=== PATIENT | female | born 1995 | race Caucasian/White ===

== ENCOUNTER 2016-10-17 12:44 | Emergency (ER) | payer OTHER ==
[~2016-10-17] VITALS: Ht 162.6 cm; Wt 65.9 kg
[2016-10-17 12:47] VITALS: BP 125/74; PULSE 99; RESP 14; O2SAT 100
--- NOTE | 2016-10-17 13:00 | ED.REPORT ---
HPI-Extremity Problem Lower Date of Service Oct 17, 2016 ED Provider: History of Present Illness: left hip pain since yesterday. [place] [facility] [place]cesses were not visible from the skin per patient report. 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 primary care is [facility]. night sweats the last 3 nights. 8/10 pain. Also complains of burning with urination for 4 days. when asked if patient is interested in treatment, states she is in treatment at [facility]. Nursing Notes Stated Complaint: LEFT HIP PAIN/BLADDER INFECTION/FEVER Chief Complaint: Extremity Trauma Nursing Notes Reviewed: Yes Allergies: Coded Allergies: Penicillins (Verified Allergy, Severe, anaphylaxis, 10/17/16) General Time Seen by MD: 12:59 Chief Complaint Hip injury left, Other (left hip pain) Hx Obtained From: Patient Symptom Duration: Since onset Location: : Hip left Severity: Current: Pain level 8 out of 10 Risk-Extremity Prob Lower Risk Notes: active drug use 10/17/2016 Past Medical History Past Medical History Denies: Asthma, Diabetes mellitus Past Surgical History abscess opened 06/2016 Smoking History Current Every Day Smoker (1 a week for 1 years) Social History Alcohol Use: Denies alcohol use Drug Use: IV drugs, Meth, Other (heroin) Occupation lives with boyfriend no work or school 10/17/2016 Ambulatory Status Independent Review of Systems Basic Review of Systems Eyes: Vision NL, No discharge : No dysuria, No frequency Psychiatric: Normal thought content Physical Exam Initial Vital Signs Vital Signs (First) Date Time Temp Pulse Resp B/P Pulse Ox O2 Delivery O2 Flow Rate FiO2 10/17/16 12:47 37.1 99 14 125/74 100 Room Air Initial VS: Reviewed, Vital signs normal General/Constitutional: Well-developed, Well-nourished Head / Eyes: Atraumatic, Normocephalic, PERRL ENT: Mucous membranes moist, Conjunctiva normal, No scleral icterus Neck: Supple, Non-tender, Full range of motion Abdomen / GI: Soft, Non-tender, No guarding, No rebound, No distention Back: No CVA tenderness Lymphatic: No lymphadenopathy Upper Extremities: Vascular intact, Neuro intact, No swelling, No tenderness Neurologic: Alert, Oriented, Nonfocal Psychiatric: Mood/affect normal, Behavior normal, Normal thought content Lower Extremity / Pelvis / MS: Atraumatic, Inspection NL, Full range of motion , No swelling Left Hip: Positive: Tenderness present... (Moderate) no erthyma noted on left hip. visible well healed surgery scar Ankle / Foot: Atraumatic, Inspection NL, Full range of motion, No swelling General/Constitutional: Awake, Alert, No acute distress, Well appearing, Well developed, Well hydrated, Well nourished, Cooperative, Not toxic appearing Respiratory / Chest: Atraumatic, Breath sounds NL, Breath sounds = bilat, No respiratory distress Cardiovascular: Regular rhythm, Heart sounds NL, No murmurs Heart Rate / Rhythm: Positive: Tachycardia 2+ DP PT pulses bilaterally. Skin: Atraumatic, Color NL, No rash Back: Full range of motion, No midline vertebral tend Additional Notes: No midline spinal tenderness. Left lumbar paraspinous tenderness, without overlying erythema, ecchymosis, or swelling. Interpretation & Diagnostics Lab Results Interpretation Result Diagram: 10/17/16 1350 10/17/16 1350 Test 10/17/16 13:06 10/17/16 13:50 Urine Color Yellow (YELLOW) Urine Appearance Clear (CLEAR,HAZY) Urine pH 6.0 (5.0-8.0) Urine Specific [place] 1.010 (1.003-1.035) Urine Protein Negativemg/dL (NEG,TRACE) Urine Glucose (UA) Negativemg/dL (NEGATIVE) Urine Ketones Negativemg/dL (NEGATIVE) Urine Occult Blood Negative (NEGATIVE) Urine Nitrite Positive (NEGATIVE) Urine Bilirubin Negative (NEGATIVE) Urine Urobilinogen Normalmg/dL (NORMAL) Urine Leukocyte Esterase Small (NEGATIVE) Urine RBC 0-2/hpf (0-2) Urine WBC 6-10/hpf (0-5) Urine Epithelial Cells Many/hpf (NONE-MOD) Urine Crystals None seen (NONE SEEN) Urine Bacteria Many/hpf (NONE-FEW) Urine Hyaline Casts None/lpf (NONE) Urine Granular Casts None seen (NONE SEEN) Urine Waxy Casts None seen (NONE SEEN) Urine Red Blood Cell Casts None seen (NONE SEEN) Urine White Blood Cell Casts None seen (NONE SEEN) Urine Mucus None seen (None Seen) Urine Trichomonas None seen (NONE SEEN) Urine Yeast None (NONE SEEN) Urinalysis Comment None Urine Culture Reflexed Indicated Hold Urine Received (Received) White Blood Count 15.4th/mm3 (3.8-10.1) Red Blood Count 4.16mil/mm3 (3.90-5.20) Hemoglobin 11.7g/dL (12.0-15.6) Hematocrit 35.6% (35.0-46.0) Mean Corpuscular Volume 85.6fL (81-100) Mean Corpuscular Hemoglobin 28.1pg (27.0-35.0) Mean Corpuscular Hemoglobin Concent 32.9% (32.0-37.0) Red Cell Distribution Width 12.6% (12.3-15.4) Platelet Count 489bil/L (150-400) Neutrophils (%) (Auto) 76.7% (40-74) Lymphocytes (%) (Auto) 10.3% (14-46) Monocytes (%) (Auto) 12.2% (4-12) Eosinophils (%) (Auto) 0.1% (0-5) Basophils (%) (Auto) 0.5% (0-3) Erythrocyte Sedimentation Rate 68mm/hr (0-32) Sodium Level 138mEq/L (134-144) Potassium Level 4.8mEq/L (3.5-5.2) Chloride Level 100mEq/L (97-108) Carbon Dioxide Level 21mmol/L (18-29) Blood Urea Nitrogen 11mg/dL (6-20) Creatinine 0.44mg/dL (0.57-1.00) Estimat Glomerular Filtration Rate 261mL/min (>59) Glucose Level 126mg/dL (60-99) Lactic Acid Level 1.0mmol/L (0.4-2.0) Calcium Level 9.2mg/dL (8.5-10.1) Total Bilirubin 0.4mg/dL (0.0-1.2) Aspartate Amino Transf (AST/SGOT) 15U/L (0-50) Alanine Aminotransferase (ALT/SGPT) 21U/L (0-32) Alkaline Phosphatase 106U/L (25-150) C-Reactive Protein 19.9mg/dL (0.0-0.5) Total Protein 7.3g/dL (6.4-8.4) Albumin 3.9g/dL (3.4-5.0) Lab Results Interpretation: urine positive for nitrates Re-Eval/Medical Decision Med Decision/Clinical Course 21 year old female with ongoing IV drug use. [place] of [place] [facility] [place] Presents today with painful urination and left hip pain and low back pain. White count is elevated at 15. Both sed and CRP are elevated. Patient initially treated with rocephin for bladder infection, then vanco started. Patient was upset at being told she was being transfered [place] [facility] [place] Patient did not want to go there. No sign of compartment syndrome. Re-Evaluation/Progress : Time of Eval: 19:12 Re-Evaluation/Progress Note: I, Dr. Breen, assumed care of the patient from JAMES Goncalves at 18:30. Patient is resting comfortably. Explained the severity of patient's condition. Re-examined patient. She reports constipation due to oxycontin use, but denies changes in bowel/bladder habits otherwise. Discussed plan to discharge with urgent return precautions and need for immediate follow-up. Patient understands and agrees to the plan. All other questions addressed. Consultation : Consulted With: Orthopedic Requested Call at: 16:45 Call Returned at: 17:00 Note: Discussed with Dr. Mccray concern for possible abscess site noted on CT. Dr. Mccray suggestion is to send [place] [facility] [place] best at pelvic [place]. Also discussed with Dr. Puente of [place]. He also recommends follow up [place] [facility] [place] [facility] [place] Discussed with Emma in the transfer center, at [phone], the need to talk with ortho. [phone] Dr. Jose Johnson returns phone call. States he is looking at the images as we speak. Per his evualation the changes that are seen are chronic. REported to him, labs, vitals and that she has a bladder infection. As she has been following with the [facility] team. last visit was 3 weeks ago; he recommends discharge home on levaquin 750 daily for 14 days with follow up in less than 14 days . States they would not do surgery as these are chronic changes. Discussed with patient, patient is agreeable with plan and does agree to follow up. Patient given return to ER instructions Counseled Regarding: Diagnosis, Lab results, Need for follow-up, When/why to return to ED Discharge & Departure Impression: Primary Impression: Urinary tract infection Encounter type: initial encounter Additional Impressions: Osteomyelitis Piriformis muscle pain Infection Disposition: Home Discharge Condition All VS Reviewed: Yes Condition: Stable Patient Instructions: Osteomyelitis (DC), Urinary Tract Infection in Women (ED) Additional Instructions: You clearly have a bladder infection. You have received a dose of rocephin and vancomycin in the ER. The CT that was done here was sent to [facility]. Dr. Jose Johnson from [facility], has reviewed the images. He feels the changes that we are seeing today, are changes that have been present previously. Your vitals are stable. As he feels these are chronic changes, his recommendation is to start Levaquin 750 mg daily for 14 days. He would like you to follow up in less than 2 weeks time with the [facility]. As your last follow up was about 3 weeks ago, please call them and arrange a follow up appointment. If you should develop fever greater than 101.5, vomiting, inability to keep the medication down, return to the ER immediately. EDSupervising Provider for APC: Anne Breen MD Scribe Attestation Portions of this note were transcribed by John Price. I, Dr. Breen, personally performed the history, physical exam and medical decision-making; I reviewed and confirmed the accuracy of the information in the transcribed note. Signed by: Melissa Parsons. 10/17/2016 - 19:20 Savi Dominique Oct 17, 2016 13:00 JOHN PRICE Oct 17, 2016 19:18
[2016-10-17] MEDS ORDERED: 0.9% Sodium Chloride 1,000 ML IV ONE (13:15)
[2016-10-17 13:55] LABS: APPEARANCE,URINE CLEAR (CLEAR,HAZY); COLOR,URINE YELLOW (YELLOW); OCCULT BLOOD,URINE NEGATIVE (NEGATIVE); UROBILINOGEN,URINE NORMAL (NORMAL)
[2016-10-17 14:04] LABS: BASOPHILS % (AUTO) 0.5 % (0-3); EOSINOPHILS % (AUTO) 0.1 % (0-5); MONOCYTES % (AUTO) 12.2 % (4-12); Mean Corpuscular Hemoglobin 28.1 pg (27.0-35.0); Mean Corpuscular Volume 85.6 fL (81-100); NEUTROPHILS % (AUTO) 76.7 % (40-74); Platelet Count 489 bil/L (150-400)
[2016-10-17] MEDS ORDERED: cefTRIAXone Inj 1,000 MG in Dextrose 5% Minibag Plus 50 ML IV ONE (14:50)
--- NOTE | 2016-10-17 16:33 | DRSVH ---
PROCEDURE: CT ABDOMEN AND PELVIS WITH CONTRAST ([id number]) INDICATIONS: ? deep abscess IVDA TECHNIQUE: After the administration of intravenous contrast, 5 mm thick sections acquired from the diaphragm to the symphysis. 5 mm coronal and sagittal reformats were acquired. For radiation dose reduction, the following was used: automated exposure control, adjustment of mA and/or kV according to patient siz e. COMPARISON: [facility], , L-SPINE WITHOUT CONTRAST, 06/21/2016, 11:15. FINDINGS: Image quality: Excellent. ABDOMEN: Lung bases: Lung bases are clear. Heart size is normal. Solid organs: Liver and spleen are normal in size and enhancement. Gallbladder is unremarkable. Bi liary system is non dilated. Pancreas enhances normally. No adrenal nodules. Kidneys demonstrate n ormal size and enhancement, without hydronephrosis. Peritoneum and bowel: Bowel loops demonstrate normal wall thickness and caliber. No free fluid or a ir. Nodes and vessels: No retroperitoneal or mesenteric adenopathy by size criteria. There are several p eriaortic lymph nodes identified, the largest measuring 8 mm in short axis. Aorta and inferior vena c pablo are normal in size. Miscellaneous: No ventral hernias. PELVIS: Genitourinary: Bladder wall thickness is normal. There is a small focus of nondependent air. Miscellaneous: There is sclerotic and erosive changes within the sacrum as well as left-sided sacral fracture. There is irregularity along the sacral aspect of the sacroiliac joint on the left. Along t he inferior aspect of the sacrum, there is homogeneous, masslike prominence of the left piriformis me asuring 32 mm AP by 37 mm transverse. In addition, there is presumed adenopathy identified along the left iliac chain with the most prominent node measuring approximately 15 mm. There is stranding and l oss of clear fat plane definition within the left lower pelvis extending to the region of masslike le janet. It is noted that osseous marrow changes were present in the left iliac wing and iliopsoas muscu lature on MRI lumbar spine of 06/21/16. IMPRESSION: 1. Homogeneous masslike prominence along the left piriformus musculature with left lower pelvic iliac chain adenopathy. Finding is most suggestive of phlegmon/abscess. In addition, there are erosive toshia nges with superimposed fracture of the left iliac wing suggestive of progressive infection, likely os teomyelitic change. It is noted that this has either recurred or become progressive since prior exam dated 06/21/16. The above findings were discussed with Savi RAMIREZ on 10/17/16 at 4 PM. Dictated by: Cande Chairez M.D. on 10/17/2016 at 15:23 Approved by: Cande Chairez M.D. on 10/17/2016 at 16:32
[2016-10-17] MEDS ORDERED: Ondansetron 2 mg/mL 2 mL Inj IVPUSH ONE (16:35)
[2016-10-17] MEDS: HYDROmorphone 0.5 mg/0.5 mL iSecure Syringe IVPUSH PRN ×2 (16:44→17:22)
[2016-10-17] MEDS ORDERED: Vancomycin Inj 1,500 MG in 0.9% Sodium Chloride 500 ML IV ONE (16:50)
[2016-10-17 18:02] VITALS: BP 120/64; PULSE 107; RESP 12; O2SAT 99
[2016-10-17 19:24] VITALS: BP 122/66; PULSE 100; RESP 14; O2SAT 98
== END 2016-10-17 19:25 | disposition home or self-care (01) ==
LOC: SED 12:44
DX: N39.0 Urinary tract infection, site not specified (principal); M86.9 Osteomyelitis, unspecified; M62.838 Other muscle spasm; F11.90 Opioid use, unspecified, uncomplicated; F15.90 Other stimulant use, unspecified, uncomplicated; F17.200 Nicotine dependence, unspecified, uncomplicated; Z88.0 Allergy status to penicillin
CPT/HCPCS: 36415; 74177; 80053; 81000; 81002; 81025; 83605; 85025; 85651; 86140; 87040; 87077; 87086; 87088; 87186; 96361; 96365; 96366; 96367; 96375; 99285; J0696; J1170; J1885; J2060; J2405; J3370; J7030; J7040; Q9967

== ENCOUNTER 2016-10-18 01:22 | Emergency (ER) | payer OTHER ==
[~2016-10-18] VITALS: Ht 162.6 cm; Wt 65.9 kg
[2016-10-18 01:25] VITALS: BP 127/72; PULSE 117; RESP 20; O2SAT 100
--- NOTE | 2016-10-18 01:32 | ED.REPORT ---
HPI-General Illness Date of Service Oct 18, 2016 ED Provider: Peewee Wolf MD A 21 year old female with a history of left hip abscess presents to the ED complaining of fever (39.2 in triage) and left hip pain onset a few hours ago. The patient visited the ED on 10/17/2016 and was diagnosed with UTI and told to return if she developed a fever. The patient went home, took a nap later in the day, and then developed a fever. She took Tylenol and Ibuprofen, the fever dropping below 99 F for a little while. The patient was given Toradol in the ED 24 hours ago for hip pain. She was given antibiotics 3 days ago. She has never been on Suboxone before. Patient does not want to go to [facility]. Nursing Notes Stated Complaint: FEVER Chief Complaint: Extremity Trauma Nursing Notes Reviewed: Yes Allergies: Coded Allergies: Penicillins (Verified Allergy, Severe, anaphylaxis, 10/18/16) General Time Seen by MD: 01:29 Chief Complaint Fever (39.2 max) Hx Obtained From: Patient Arrived By: Walk-in Sudden in Onset?: No Onset Occurred: 1 - 4 hours ago Symptom Duration: Since onset Severity: Current: Moderate Severity: Maximum: Moderate Recent Healthcare: Recent doctor visit (visited ED 10/17/2016) Similar Sx Previous: No Past Medical History Past Medical History Notes: Arabella Caldwell at [facility] is PCP. Past Medical History Patient was seen in [facility] 10/17/2016 for left hip pain and was diagnosed with UTI and told to return to the ED if they developed a fever. Patient has never used Suboxone. Past Surgical History left hip abscess opened 06/25/2016 at [facility] [place]. Patient reports being hospitalized for approximately 1 month. Smoking History Current Every Day Smoker Social History Alcohol Use: Denies alcohol use Drug Use: IV drugs (heroin), Meth, Other Occupation lives with boyfriend no work or school 10/17/2016 Ambulatory Status Independent Review of Systems left hip pain. Full Review of Systems Constitutional: Reports: Fever (39.2 ) Complete sys rev & neg: except as marked. Physical Exam Vital Signs Vital Signs Date Time Temp Pulse Resp B/P Pulse Ox O2 Delivery O2 Flow Rate FiO2 10/18/16 05:20 102 18 107/51 97 Room Air 10/18/16 03:29 37.9 102 21 117/40 97 Room Air 10/18/16 01:25 39.2 117 20 127/72 100 Room Air Initial VS: Reviewed, Vital signs abnormal General/Constitutional: Awake, Alert Head / Eyes: Atraumatic, Normocephalic, PERRL, EOMI Respiratory / Chest: Atraumatic, Breath sounds NL, Breath sounds = bilat, No respiratory distress, No rales, No rhonchi, No wheezing Cardiovascular: Regular rhythm, No gallop, No murmurs, No rubs Heart Rate / Rhythm: Positive: Tachycardia Abdomen: Soft, Non-tender No suprapubic tenderness. Upper Extremities Upper Extremity / MS: No swelling, No edema Tenderness in left posterior hip area. Skin: No rash, Warm Patient is pale, warm, and diaphoretic. No abscess. Neurologic: Oriented X3, Speech NL Interpretation & Diagnostics Lab Results Interpretation Result Diagram: 10/18/1621410/18/16214 Test 10/18/16 02:15 White Blood Count 13.2th/mm3 (3.8-10.1) Red Blood Count 3.72mil/mm3 (3.90-5.20) Hemoglobin 10.2g/dL (12.0-15.6) Hematocrit 32.3% (35.0-46.0) Mean Corpuscular Volume 86.8fL (81-100) Mean Corpuscular Hemoglobin 27.4pg (27.0-35.0) Mean Corpuscular Hemoglobin Concent 31.6% (32.0-37.0) Red Cell Distribution Width 12.8% (12.3-15.4) Platelet Count 498bil/L (150-400) Neutrophils (%) (Auto) 79.5% (40-74) Lymphocytes (%) (Auto) 10.3% (14-46) Monocytes (%) (Auto) 9.3% (4-12) Eosinophils (%) (Auto) 0.2% (0-5) Basophils (%) (Auto) 0.4% (0-3) Sodium Level 139mEq/L (134-144) Potassium Level 4.2mEq/L (3.5-5.2) Chloride Level 106mEq/L (97-108) Carbon Dioxide Level 18mmol/L (18-29) Blood Urea Nitrogen 7mg/dL (6-20) Creatinine 0.50mg/dL (0.57-1.00) Estimat Glomerular Filtration Rate 225mL/min (>59) Glucose Level 174mg/dL (60-99) Lactic Acid Level 3.2mmol/L (0.4-2.0) Calcium Level 8.7mg/dL (8.5-10.1) Magnesium Level 1.8mg/dL (1.6-2.6) Total Bilirubin 0.2mg/dL (0.0-1.2) Aspartate Amino Transf (AST/SGOT) 19U/L (0-50) Alanine Aminotransferase (ALT/SGPT) 19U/L (0-32) Alkaline Phosphatase 95U/L (25-150) Total Protein 6.9g/dL (6.4-8.4) Albumin 3.3g/dL (3.4-5.0) Re-Eval/Medical Decision Med Decision/Clinical Course 21-year-old female who was seen yesterday with suspicion for recurrent pelvic abscess. She also possibly had a urinary tract infection. She received Rocephin and vancomycin in the emergency room and was discharged on levofloxacin. However she worsens significantly with generalized body aches and malaise, temperature 39.2, and pallor or diaphoresis. On reevaluation here her while white count remains elevated but her lactate changed from 1.0 to 3.2. She was mildly tachycardic but not hypotensive. She was given 3 L of saline here. She was given a second dose of vancomycin. Her case was rediscussed with [facility] orthopedics Dr. Carroll who accepts her in transfer. She is transferred by [facility] ambulance. Her condition on transfer is serious but stable. The patient is somewhat reluctant to be transferred but does agree to transfer and further care at [facility]. Source of Hx: Old records Time of Eval: 01:39 Re-Evaluation/Progress Note: Rechecked patient and explained plan to do tests. Explained that if tests are markedly worse than previous tests, then the patient should go to [facility]. Time of Eval: 05:01 Re-Evaluation/Progress Note: Rechecked patient and explained WBC and lactic acid results. Explained that symptoms are probably not from UTI and are probably related to left hip infection. Explained that antibiotic use is not adequate enough plan and further evaluation is needed. Highly recommended that patient go to [facility]. Patient agrees to go to [facility]. Consultation #1: Referral / Consult Name: Alonzo Rodríguez MD Consulted With: Hospitalist Call Returned at: 04:53 Note: Discussed patient case with Dr. Rodríguez who thinks that patient may need to go to [facility]. Consultation #2: Call Returned at: 05:17 Note: Discussed patient case with [facility] and requested patient transfer. Consultation #3: Call Returned at: 05:27 Note: Discussed patient case with Dr. Jose Johnson, orthopedist at [facility] who accepts patient transfer. Counseled Regarding: Diagnosis, Lab results, Need for follow-up, When/why to return to ED, Need for transfer Discharge & Departure Primary Impression: Osteomyelitis Additional Impressions: Sepsis Pelvic abscess Heroin abuse Disposition: Transfer, Acute Care Facility Transfer Requested at: 05:17 Call returned time Receiving Hospital: [facility]. Transfer Accepted: Yes Transfer Accepted at: 05:27 Transfer Reason: Higher level of care Spoke with: Attending physician (Dr. Jose Johnson, Orthopedist) Patient Status: Stable Patient Informed: Yes Discharge Condition All VS Reviewed: Yes Condition: Stable Referrals: NOPCP (PCP) Arabella Caldwell Attestation Portions of this note were transcribed by Jose Aviles. I, Dr. Wolf personally performed the history, physical exam and medical decision-making; I reviewed and confirmed the accuracy of the information in the transcribed note. Signed by: Melissa Kirkland, 10/18/2016, 0509. copies to: Arabella Caldwell Howard L MD Oct 18, 2016 01:32 Jose Aviles Oct 18, 2016 01:42
[2016-10-18] MEDS ORDERED: 0.9% Sodium Chloride 1,000 ML IV ONE ×2 (01:43→04:40)
[2016-10-18] MEDS ORDERED: Ketorolac 15 mg/mL Inj IV ONE (01:45)
[2016-10-18] MEDS ORDERED: Ondansetron 2 mg/mL 2 mL Inj IV PRN (01:45)
[2016-10-18] MEDS ORDERED: Vancomycin Inj 1,500 MG in 0.9% Sodium Chloride 500 ML IV ONE (01:50)
[2016-10-18] MEDS: HYDROmorphone 1 mg/mL Inj IVPUSH PRN ×2 (02:17→04:46)
[2016-10-18 02:24] LABS: BASOPHILS % (AUTO) 0.4 % (0-3); EOSINOPHILS % (AUTO) 0.2 % (0-5); MONOCYTES % (AUTO) 9.3 % (4-12); Mean Corpuscular Hemoglobin 27.4 pg (27.0-35.0); Mean Corpuscular Volume 86.8 fL (81-100); NEUTROPHILS % (AUTO) 79.5 % (40-74); Platelet Count 498 bil/L (150-400)
[2016-10-18 02:47] LABS: Magnesium 1.8 mg/dL (1.6-2.6)
[2016-10-18 03:29] VITALS: BP 117/40; PULSE 102; RESP 21; O2SAT 97
[2016-10-18 05:20] VITALS: BP 107/51; PULSE 102; RESP 18; O2SAT 97
[2016-10-18] MEDS ORDERED: Vancomycin Dose per Pharmacist XX ONE (08:30)
== END 2016-10-18 05:49 | disposition short-term general hospital (02) ==
LOC: SED 01:22
DX: M86.9 Osteomyelitis, unspecified (principal); A41.9 Sepsis, unspecified organism; N73.9 Female pelvic inflammatory disease, unspecified; F11.10 Opioid abuse, uncomplicated; F17.200 Nicotine dependence, unspecified, uncomplicated; Z88.0 Allergy status to penicillin
CPT/HCPCS: 80053; 83605; 83735; 85025; 87040; 87077; 96361; 96365; 96375; 96376; 99285; J1170; J1885; J2405; J3370; J7030; J7040